=== PATIENT | male | born 1970 | race Caucasian/White ===

== ENCOUNTER → 2021-02-18 07:24 | Outpatient (CLI) | payer OTHER, SELFPAY ==
--- NOTE | 2021-02-18 16:30 | LES_PTH ---
PATIENT: MENDEL CHAVEZ LOC: [facility] U#:[id number] AGE/SX: 54/M ROOM: RE02/18/[address]: Dr. Frandy Cesar MD : 1970 BED: DIS: SPEC #: [id number] RECD: 02/18/21 17:16 STATUS: MAKAYLA ASH #: [id number] MARCO: 02/18/21 16:[address]: Frandy Cesar DEPT: SURGICAL PATHOLOGY RECD BY: Miguel Culp Tissues: Skin of eyelid, NOS Procedures: Surgery Specimen Level IV HEADER OPERATION: RUL lesion excision PRE-OP DIAGNOSIS: RUL lesion excision TISSUE SUBMITTED: RUL lesion excision MICROSCOPIC DIAGNOSIS RUL lesion, excisional biopsy: Squamous papilloma. DOROTA:brayden 02/23/2021 MICROSCOPIC DESCRIPTION Slides are reviewed. GROSS DESCRIPTION Received in fixative is one container labeled with the patient's name and designated RUL. The specimen consists of a piece of holley-brown skin measuring 0.5 x 0.3 x 0.2 cm. Multiple hair is also noted. The entire specimen is submitted in one cassette. / SJ:brayden 02/22/21 TC:1 CPT: 26888
== END ==
PROVIDERS: Referring Provider Ophthalmology; Visit Provider Ophthalmology
DX: H02.9 Unspecified disorder of eyelid (principal)
CPT/HCPCS: 88305